=== PATIENT | female | born 1995 | race Caucasian/White ===

== ENCOUNTER 2020-06-11 10:13 | Observation (INO) ==
[2020-06-11 11:21] LABS: Bacteria,Urine Few per hpf (None-Few); Bilirubin,Urine Negative (Negative); Blood,Urine Negative (Negative); Clarity,Urine Clear (Clear); Color,Urine Colorless (Yellow); Glucose,Urine (UA) Normal (Normal); Ketones,Urine Negative (Negative); Leukocyte Esterase,Urine Small (Negative); Mucus,Urine Few per lpf (None-Few); Nitrite,Urine Negative (Negative); Protein,Urine Negative (Neg-Trace); RBC,Urine 0-3 per hpf (0-3); Specific Gravity,Urine 1.008 (1.010-1.025); Squamous Epithelial Cell,Urine Few per hpf (None-Few); Urobilinogen,Urine Normal (Normal); WBC,Urine 0-3 per hpf (0-3)
[2020-06-11 13:33] LABS: Candida DNA DETECTED (Not Detect); Gardnerella DNA DETECTED (Not Detect); Trichomonas DNA Not Detected (Not Detect)
== END 2020-06-11 12:59 | disposition home or self-care (01) ==
LOC: 1NENULAB
PROVIDERS: ADMIT Obstetrics & Gynecology; ATTEND Obstetrics & Gynecology

== ENCOUNTER 2020-07-26 11:00 | Inpatient (IN) ==
[2020-07-26] MEDS ORDERED: Famotidine 20 MG/2 ML VIAL IVP ONE (11:29)
[2020-07-26] MEDS ORDERED: CeFAZolin 2,000 MG/50 ML BAG IVPB ONE (11:29)
[2020-07-26] MEDS ORDERED: Metoclopramide 10 MG/2 ML VIAL IVP ONE (11:29)
[2020-07-26] MEDS ORDERED: Ringers Solution, Lactated 1,000 ML IVC ONE (11:29)
[2020-07-26] MEDS ORDERED: Oxytocin 20 units/ LR 1000 mL 20 UNIT/1,000 ML BAG IVC ONE (11:29)
[2020-07-26] MEDS ORDERED: Ringers Solution, Lactated 1,000 ML IVC SCH (11:30)
[2020-07-26] MEDS ORDERED: Oxytocin 20 units/ LR 1000 mL 20 UNIT/1,000 ML BAG IVC SCH ×2 (11:30→16:41)
[2020-07-26 12:25] LABS: Basophils # 0.1 K/mcL (0.0-0.2); Basophils % 0.4 %; Eosinophils # 0.1 K/mcL (0.0-0.6); Hematocrit 34.8 % (35.3-44.9); Hemoglobin 11.9 g/dL (11.5-15.4); Immature Granulocytes % 0.3 % (0-4); Lymphocytes % 16.7 %; Mean Corpuscular HGB Conc 34.2 g/dL (31.6-35.5); Mean Corpuscular Hemoglobin 31.6 pg (28.0-33.3); Mean Corpuscular Volume 92.6 fL (83.0-100.0); Mean Platelet Volume 10.2 fL (9.4-12.4); Monocytes # 0.6 K/mcL (0.0-1.3); Monocytes % 5.1 %; Neutrophils # 9.1 K/mcL (1.6-8.9); Platelet Count 389 K/mcL (140-400); Red Blood Count 3.76 M/mcL (3.82-4.97); Red Cell Distribution Width 13.1 % (11.5-14.5); Segmented Neutrophils % 76.5 %; White Blood Count 11.9 K/mcL (4.3-11.1)
[2020-07-26] MEDS ORDERED: *HR* HYDROmorphone PF 0.5 MG/0.5 ML SYRINGE IVP PRN (12:25)
[2020-07-26] MEDS ORDERED: Ondansetron 4 MG/2 ML VIAL IVP PRN ×2 (12:25→16:41)
[2020-07-26] MEDS ORDERED: *HR* Morphine Sulfate/PF 10 MG/10 ML AMPUL ONE (12:36)
[2020-07-26] MEDS ORDERED: *HR* FentaNYL (PF) 100 MCG/2 ML VIAL ONE (12:36)
[2020-07-26] MEDS ORDERED: *HR* Midazolam HCl 2 MG/2 ML VIAL ONE (12:36)
[2020-07-26] MEDS ORDERED: *HR* Phenylephrine 10 MG/ML VIAL ONE (13:04)
[2020-07-26 13:06] LABS: Amphetamine Screen,Urine Negative ng/mL (Cutoff=1000); Barbiturate Screen,Urine Negative ng/mL (Cutoff=200); Benzodiazepines Screen,Urine Negative ng/mL (Cutoff=200); Cannabinoid Screen,Urine Negative ng/mL (Cutoff = 50); Cocaine Screen,Urine Negative ng/mL (Cutoff= 300); Opiate Screen,Urine Negative ng/mL (Cutoff=300); Phencyclidine Screen,Urine Negative ng/mL (Cutoff=25)
[2020-07-26] MEDS ORDERED: Acetaminophen IV 1,000 MG/100 ML BAG IVPB ONE (13:44)
[2020-07-26] MEDS ORDERED: Ketorolac 30 MG/ML VIAL ONE (13:44)
[2020-07-26] MEDS ORDERED: Sennosides 8.6 MG TABLET PO PRN (16:41)
[2020-07-26] MEDS ORDERED: Metoclopramide 10 MG/2 ML VIAL IVP PRN (16:41)
[2020-07-26] MEDS ORDERED: CeFAZolin 2,000 MG/50 ML BAG IVPB SCH (18:00)
[2020-07-26] MEDS: CeFAZolin 2 GM/120 ML BAG IVPB SCH (20:47)
[2020-07-26] MEDS: Simethicone 80 MG TAB.CHEW PO PRN (20:47)
[2020-07-26] MEDS: Ibuprofen 600 MG TABLET PO PRN (20:48)
[2020-07-27] MEDS: Ibuprofen 600 MG TABLET PO PRN ×4 (02:35→21:50)
[2020-07-27] MEDS: CeFAZolin 2 GM/120 ML BAG IVPB SCH ×2 (05:26→13:22)
[2020-07-27 05:45] LABS: Basophils # 0.1 K/mcL (0.0-0.2); Basophils % 0.5 %; Eosinophils # 0.1 K/mcL (0.0-0.6); Eosinophils % 0.5 %; Hematocrit 28.7 % (35.3-44.9); Immature Granulocytes % 0.5 % (0-4); Lymphocytes # 1.7 K/mcL (0.6-4.6); Lymphocytes % 14.9 %; Mean Corpuscular HGB Conc 33.8 g/dL (31.6-35.5); Mean Corpuscular Volume 91.7 fL (83.0-100.0); Mean Platelet Volume 10.2 fL (9.4-12.4); Monocytes # 0.8 K/mcL (0.0-1.3); Monocytes % 7.4 %; Neutrophils # 8.4 K/mcL (1.6-8.9); Platelet Count 305 K/mcL (140-400); Red Blood Count 3.13 M/mcL (3.82-4.97); Red Cell Distribution Width 13.2 % (11.5-14.5); Segmented Neutrophils % 76.2 %; White Blood Count 11.1 K/mcL (4.3-11.1)
[2020-07-27 05:50] LABS: Hemoglobin 9.7 g/dL (11.5-15.4)
[2020-07-27] MEDS: Prenatal Vit/FA 1 EACH TABLET PO SCH (08:03)
[2020-07-27] MEDS: *HR* OxyCODONE/APAP 5/325 TABLET PO PRN ×2 (08:04→15:38)
[2020-07-27] MEDS: Simethicone 80 MG TAB.CHEW PO PRN (15:43)
[2020-07-28] MEDS: *HR* OxyCODONE/APAP 5/325 TABLET PO PRN (02:21)
[2020-07-28] MEDS: Prenatal Vit/FA 1 EACH TABLET PO SCH (08:35)
[2020-07-28] MEDS: Ibuprofen 600 MG TABLET PO PRN ×2 (08:35→14:53)
[2020-07-28 17:25] VITALS: BP 122/81
== END 2020-07-28 17:57 | disposition home or self-care (01) | DRG 540 ==
LOC: 1NENULAB 11:07 → 1NENUOBS 16:38
PROVIDERS: ADMIT Obstetrics & Gynecology; ATTEND Obstetrics & Gynecology